=== PATIENT | male | born 2000 | race Two or more races ===

== ENCOUNTER 2022-08-23 07:39 | Emergency (ER) | payer SELFPAY ==
[~2022-08-23] VITALS: Ht 160 cm; Wt 63.5 kg
--- NOTE | 2022-08-23 07:59 | NUR ---
Dr Malik at the bedside for MSE.
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
--- NOTE | 2022-08-23 09:19 | NUR ---
Patient does not wish to proceed with medical care recommended by Dr. Grant). Patient given information related to possible complications, up to and including , which could occur as a result of leaving the hospital at this time. Patient verbalizes understanding of risks involved due to leaving against medical advice. Patient has signed AMA form.
[2022-08-23 09:20] VITALS: BP 117/60
--- NOTE | 2022-08-23 09:22 | NUR ---
Pt walked out of ER w/ steady gait.
== END 2022-08-23 09:22 | disposition home or self-care (01) ==
LOC: EDBD 07:39 → ER 07:39
DX: R07.9 Chest pain, unspecified (principal); V43.52XA Car driver injured in collision with other type car in traffic accident, initial encounter; Y92.410 Unspecified street and highway as the place of occurrence of the external cause; Z53.29 Procedure and treatment not carried out because of patient's decision for other reasons
CPT/HCPCS: A4663